=== PATIENT | female | born 1970 | race Caucasian/White ===

== ENCOUNTER → 2018-02-11 11:21 | Outpatient (CLI) | payer OTHER, SELFPAY | PROVIDERS: Family Provider Family Medicine; PCP Family Medicine; Visit Provider Physician Assistant | DX: L02.213 Cutaneous abscess of chest wall (principal) | CPT/HCPCS: 87070; 87077; 87147; 87186; 87205 ==

== ENCOUNTER 2018-02-13 06:35 | Emergency (ER) | payer OTHER, SELFPAY ==
[2018-02-13 06:44] VITALS: BP 133/82; PULSE 67; RESP 16; TEMP 36.5; O2SAT 100
--- NOTE | 2018-02-13 08:04 | DI.US.S_ITS ---
PROCEDURE: US CHEST COMPARISON: None. INDICATIONS: RED PAINFUL LUMP LEFT UPPER ANTERIOR ABDOMINAL WALL FINDINGS: No discrete focal fluid collection is seen sonographically to suggest abscess. IMPRESSION: No sonographic evidence of abscess Dictated by: Miky Coulter M.D. on 02/13/2018 at 10:06 Approved by: Miky Coulter M.D. on 02/13/2018 at 10:06
--- NOTE | 2018-02-13 08:07 | ED.SKABFB ---
HPI - Skin/Abscess/Foreign Bdy General Chief complaint: Skin/Abscess/Foreign Body Stated complaint: abscess on right side of abdomen Time Seen by Provider: 02/13/18 07:17 Source: patient Mode of arrival: ambulatory Limitations: no limitations History of Present Illness HPI narrative: This is a 48-year-old female who comes to the emergency department with complaint of increasing redness, pain and swelling over the area of an abscess that was I indeed on Monday. Today is Monday. Patient states she was started on antibiotics. She had a large amount of purulent drainage yesterday when a friend pushed on the area. She has not had any fevers, she has not had any nausea or vomiting she states the site is fairly uncomfortable. She has been taking Advil for it with some improvement. She has been having some mild diarrhea after starting antibiotics. Antibiotics are Bactrim twice daily. Patient states she has been taking them. She has not had prior issues with skin infections. She denies any other past medical history. She states she has had some minor surgeries but no major surgeries, she does not smoke tobacco. She was initially seen at the walk-in clinic, she states they did do a culture. The she was supposed to return today to have her packing removed but came to the ER as the redness seemed to be spreading. Related Data Previous Rx's Medication Instructions Recorded fluconazole 150 mg tablet 150 mg PO ONCE #1 tab 02/11/18 sulfamethoxazole 800 1 tab PO BID PRN 10 Days #20 tab 02/11/18 mg-trimethoprim 160 mg tablet clindamycin HCl 300 mg PO QID #40 cap 02/13/18 Allergies Allergy/AdvReac Type Severity Reaction Status Date / Time No Known Drug Allergies Allergy Verified 02/13/18 06:57 Review of Systems Review of Systems All systems reviewed & are unremarkable except as noted in HPI and below Constitutional Denies chills and Denies fever(s) Gastrointestinal Gastrointestinal: Reports abdominal pain, Reports diarrhea (mild after abx), Denies nausea and Denies vomiting Genitourinary Reports system reviewed and no additional complaints, except as docu Integumentary/Breasts Reports as per HPI, Reports erythema (spreading) and Reports other (abscess worsening) PFSH Social History Smoking Status: Never smoker Exam Narrative Exam Narrative: GENERAL: Alert and oriented x three, well-nourished, well-appearing female in mild distress HEENT: Head normocephalic, atraumatic, EOMI, pupils reactive, face symmetric, moist mucous membranes NECK: Supple, full range of motion CARDIOVASCULAR: Regular rate and rhythm without murmurs, rubs or gallops. RESPIRATORY: Breath sounds equal bilaterally, no wheezes rales or rhonchi. ABDOMEN: Soft, patient has an area of induration and that is about 7 cm x 5 cm. There is erythema extending beyond by 2 or 3 cm on the lateral side. Patient has a line drawn and does show that the erythema is extending about 4 cm beyond the original site. Patient has a 1 cm opening with packing, packing was removed there was about 6 in of packing. There is very scant purulent discharge. There is a slightly foul odor. Area is warm to touch. Patient is tender over that area but does not have any other abdominal tenderness on exam Normoactive bowel sounds all 4 quadrants. No guarding or rebound, rigidity, no mass : No CVA tenderness EXTREMITIES: Normal range of motion, no clubbing or edema. Neurovascularly intact NEUROLOGICAL: Cranial nerves II through XII grossly intact. Moving all extremities SKIN: Warm, dry, no petechiae, no rashes or lesions. Initial Vital Signs Initial Vital Signs: Vital Signs Temperature 97.7 F 02/13/18 06:44 Pulse Rate 67 02/13/18 06:44 Respiratory Rate 16 02/13/18 06:44 Blood Pressure 133/82 02/13/18 06:44 Pulse Oximetry 100 02/13/18 06:44 Course Orders Ordered: Discontinued Medications Clindamycin Phosphate (Cleocin) 600 mg in 50 mls @ 50 mls/hr IV NOW ONE Stop: 02/13/18 09:05 Last Infusion: 02/13/18 10:01 Dose: 0 mls/hr Admin: 02/13/18 08:30 Dose: 50 mls/hr Ketorolac Tromethamine (Toradol) 30 mg IV NOW ONE Stop: 02/13/18 08:05 Last Admin: 02/13/18 08:31 Dose: 30 mg Vital Signs - 8 hr 02/13/18 09:34 02/13/18 10:15 Pulse Rate 60 65 Respiratory Rate 16 15 Blood Pressure 114/82 Blood Pressure [Right Arm] 114/82 Pulse Oximetry 100 100 MDM - Skin/Abscess/Foreign Bdy Lab Data Attestation: I reviewed the patient's lab results. Result diagrams: 02/13/18 08:15 02/13/18 08:15 Lab Results 02/13/18 02/13/18 02/13/18 Range/Units 08:15 08:15 08:15 WBC 8.6 (4.5-11.0) X10^3/uL RBC 4.06 (4.0-5.2) X10^6/uL Hgb 12.1 (12.0-16.0) g/dL Hct 36.3 (36-46) % MCV 89.3 (80-100) fL MCH 29.9 (26-34) PG MCHC 33.5 (30-36) % RDW 13.8 (11.6-14.8) % Plt Count 338 (150-400) X10^3/uL Neut % (Auto) 59.9 (50-75) % Lymph % (Auto) 29.5 (25-40) % [place] % (Auto) 7.4 (3-14) % Eos % (Auto) 2.6 (2-4) % Baso % (Auto) 0.6 (0-2) % Neut # (Auto) 5100 (4300-3487) /uL Sodium 138 (137-145) mmol/L Potassium 4.4 (3.4-5.1) mmol/L Chloride 105 (98-107) mmol/L Carbon Dioxide 22 (22-32) mmol/L BUN 17 (7-17) mg/dL Creatinine 0.90 (0.52-1.04) mg/dL Estimated GFR > 60.0 (>60) mL/min BUN/Creatinine Ratio 18.9 (6-22) Glucose 89 (70-100) mg/dL Lactate 0.9 (0.7-2.1) mmol/L Calcium 9.5 (8.4-10.2) mg/dL Imaging Data chest/abd US: Radiologist's impression: [address] [address] Ultrasound Report Signed Patient: Rissa Olmos MR#: [id number] : 1970 Acct:[id number] Age/Sex: 48 / F Date of Service: 02/13/18 Loc: ED Accession Number: [id number] Procedure: US chest Ordering Provider: Julia Albert D.O. PROCEDURE: US CHEST COMPARISON: None. INDICATIONS: RED PAINFUL LUMP LEFT UPPER ANTERIOR ABDOMINAL WALL FINDINGS: No discrete focal fluid collection is seen sonographically to suggest abscess. IMPRESSION: No sonographic evidence of abscess Dictated by: Miky Coulter M.D. on 02/13/2018 at 10:06 Approved by: Miky Coulter M.D. on 02/13/2018 at 10:06 [facility] Narrative Medical decision making narrative: Culture ordered and was reviewed is positive for Staph aureus. Sensitivities are still pending. As patient has erythema seems to be spreading. Some basic labs ordered, dose of IV antibiotics was given packing was removed. Patient was given Toradol for pain control and re-evaluated. Patient's culture came back while in the department and sensitivity is clear for Bactrim but since patient has worsening will switch to clindamycin. A small amount of packing was placed in order to keep the area open. All questions were answered for patient and her . Discharge Plan Departure Patient Disposition: Home Clinical Impression: Abdominal wall abscess, Abdominal wall cellulitis Discharge Date/Time: 02/13/18 10:16 Interventions: ED Discharge Assessment Last Done: 02/13/18 10:15 Instructions: DI for Incision and Drainage of a Skin Abscess Activity Restrictions/Additional Instructions: Follow up in 24-48 hours for recheck with your physician/urgent care/ER for packing removal. Start new antibiotic prescription today. Stop your bactrim. He may continue to use Aleve/ibuprofen for pain and/or Tylenol. Wound Care: Keep wound(s) clean and dry. Wash daily with soap and water only. Do not use over the counter products (alcohol or peroxide)on the wounds unless instructed by a physician. If wound condition worsens (increased/expanding redness, developing fluid blisters, or worsening pain), either contact your doctor for an urgent re-assessment , or return to the Emergency Department. Return to the Emergency Department for any new or worsening symptoms. Return if fever greater than 100.4 Fahrenheit, increased swelling, increasing pain or worsening symptoms such as increased discharge or spreading redness. Use warm compresses 3 times daily for 20 minutes to the affected area. If there is packing in place do not pull it out, if it falls out do not try to replace it. Prescriptions: New clindamycin HCl 300 mg capsule 300 mg PO QID Qty: 40 RF: 0 No Action fluconazole 150 mg tablet 150 mg PO ONCE Qty: 1 RF: 1 sulfamethoxazole-trimethoprim [Bactrim DS] 800-160 mg tablet 1 tab PO BID PRN (Reason: cellulitis) 10 Days Qty: 20 RF: 0 Referrals: Gilberto Guallpa MD [Primary Care Provider] -
--- NOTE | 2018-02-13 08:10 | ED_ITS ---
HPI - Skin/Abscess/Foreign Bdy General Chief complaint: Skin/Abscess/Foreign Body Stated complaint: abscess on right side of abdomen Time Seen by Provider: 02/13/18 07:17 Source: patient Mode of arrival: ambulatory Limitations: no limitations History of Present Illness HPI narrative: This is a 48-year-old female who comes to the emergency department with complaint of increasing redness, pain and swelling over the area of an abscess that was I indeed on Monday. Today is Monday. Patient states she was started on antibiotics. She had a large amount of purulent drainage yesterday when a friend pushed on the area. She has not had any fevers , she has not had any nausea or vomiting she states the site is fairly uncomfortable. She has been taking Advil for it with some improvement. She has been having some mild diarrhea after starting antibiotics. Antibiotics are Bactrim twice daily. Patient states she has been taking them. She has not had prior issues with skin infections. She denies any other past medical history. She states she has had some minor surgeries but no major surgeries, she does not smoke tobacco. She was initially seen at the walk-in clinic, she states they did do a culture. The she was supposed to return today to have her packing removed but came to the ER as the redness seemed to be spreading. Related Data Previous Rx's Medication Instructions Recorded fluconazole 150 mg tablet 150 mg PO ONCE #1 tab 02/11/18 sulfamethoxazole 800 1 tab PO BID PRN 10 Days #20 tab 02/11/18 mg-trimethoprim 160 mg tablet clindamycin HCl 300 mg PO QID #40 cap 02/13/18 Allergies Allergy/AdvReac Type Severity Reaction Status Date / Time No Known Drug Allergies Allergy Verified 02/13/18 06:57 Review of Systems Review of Systems All systems reviewed & are unremarkable except as noted in HPI and below Constitutional Denies chills and Denies fever(s) Gastrointestinal Gastrointestinal: Reports abdominal pain, Reports diarrhea (mild after abx), Denies nausea and Denies vomiting Genitourinary Reports system reviewed and no additional complaints, except as docu Integumentary/Breasts Reports as per HPI, Reports erythema (spreading) and Reports other (abscess worsening) PFSH Social History Smoking Status: Never smoker Exam Narrative Exam Narrative: GENERAL: Alert and oriented x three, well-nourished, well- appearing female in mild distress HEENT: Head normocephalic, atraumatic, EOMI, pupils reactive, face symmetric, moist mucous membranes NECK: Supple, full range of motion CARDIOVASCULAR: Regular rate and rhythm without murmurs, rubs or gallops. RESPIRATORY: Breath sounds equal bilaterally, no wheezes rales or rhonchi. ABDOMEN: Soft, patient has an area of induration and that is about 7 cm x 5 cm. There is erythema extending beyond by 2 or 3 cm on the lateral side. Patient has a line drawn and does show that the erythema is extending about 4 cm beyond the original site. Patient has a 1 cm opening with packing, packing was removed there was about 6 in of packing. There is very scant purulent discharge. There is a slightly foul odor. Area is warm to touch. Patient is tender over that area but does not have any other abdominal tenderness on exam Normoactive bowel sounds all 4 quadrants. No guarding or rebound, rigidity, no mass : No CVA tenderness EXTREMITIES: Normal range of motion, no clubbing or edema. Neurovascularly intact NEUROLOGICAL: Cranial nerves II through XII grossly intact. Moving all extremities SKIN: Warm, dry, no petechiae, no rashes or lesions. Initial Vital Signs Initial Vital Signs: Vital Signs Temperature 97.7 F 02/13/18 06:44 Pulse Rate 67 02/13/18 06:44 Respiratory Rate 16 02/13/18 06:44 Blood Pressure 133/82 02/13/18 06:44 Pulse Oximetry 100 02/13/18 06:44 Course Orders Ordered: Discontinued Medications Clindamycin Phosphate (Cleocin) 600 mg in 50 mls @ 50 mls/hr IV NOW ONE Stop: 02/13/18 09:05 Last Infusion: 02/13/18 10:01 Dose: 0 mls/hr Admin: 02/13/18 08:30 Dose: 50 mls/hr Ketorolac Tromethamine (Toradol) 30 mg IV NOW ONE Stop: 02/13/18 08:05 Last Admin: 02/13/18 08:31 Dose: 30 mg Vital Signs - 8 hr 02/13/18 09:34 02/13/18 10:15 Pulse Rate 60 65 Respiratory Rate 16 15 Blood Pressure 114/82 Blood Pressure [Right Arm] 114/82 Pulse Oximetry 100 100 MDM - Skin/Abscess/Foreign Bdy Lab Data Attestation: I reviewed the patient's lab results. Result diagrams: 02/13/18 08:15 02/13/18 08:15 Lab Results 02/13/18 02/13/18 02/13/18 Range/Units 08:15 08:15 08:15 WBC 8.6 (4.5-11.0) X10^3/uL RBC 4.06 (4.0-5.2) X10^6/uL Hgb 12.1 (12.0-16.0) g/dL Hct 36.3 (36-46) % MCV 89.3 (80-100) fL MCH 29.9 (26-34) PG MCHC 33.5 (30-36) % RDW 13.8 (11.6-14.8) % Plt Count 338 (150-400) X10^3/uL Neut % (Auto) 59.9 (50-75) % Lymph % (Auto) 29.5 (25-40) % [place] % (Auto) 7.4 (3-14) % Eos % (Auto) 2.6 (2-4) % Baso % (Auto) 0.6 (0-2) % Neut # (Auto) 5100 (2991-2362) /uL Sodium 138 (137-145) mmol/L Potassium 4.4 (3.4-5.1) mmol/L Chloride 105 (98-107) mmol/L Carbon Dioxide 22 (22-32) mmol/L BUN 17 (7-17) mg/dL Creatinine 0.90 (0.52-1.04) mg/dL Estimated GFR > 60.0 (>60) mL/min BUN/Creatinine Ratio 18.9 (6-22) Glucose 89 (70-100) mg/dL Lactate 0.9 (0.7-2.1) mmol/L Calcium 9.5 (8.4-10.2) mg/dL Imaging Data chest/abd US: Radiologist's impression: [address] [address] Ultrasound Report Signed Patient: Rissa Olmos MR#: [id number] : 1970 Acct:[id number] Age/Sex: 48 / F Date of Service: 02/13/18 Loc: ED Accession Number: [id number] Procedure: US chest Ordering Provider: Julia Albert D.O. PROCEDURE: US CHEST COMPARISON: None. INDICATIONS: RED PAINFUL LUMP LEFT UPPER ANTERIOR ABDOMINAL WALL FINDINGS: No discrete focal fluid collection is seen sonographically to suggest abscess. IMPRESSION: No sonographic evidence of abscess Dictated by: Miky Coulter M.D. on 02/13/2018 at 10:06 Approved by: Miky Coulter M.D. on 02/13/2018 at 10:06 [facility] Narrative Medical decision making narrative: Culture ordered and was reviewed is positive for Staph aureus. Sensitivities are still pending. As patient has erythema seems to be spreading. Some basic labs ordered, dose of IV antibiotics was given packing was removed. Patient was given Toradol for pain control and re- evaluated. Patient's culture came back while in the department and sensitivity is clear for Bactrim but since patient has worsening will switch to clindamycin. A small amount of packing was placed in order to keep the area open. All questions were answered for patient and her . Discharge Plan Departure Patient Disposition: Home Clinical Impression: Abdominal wall abscess, Abdominal wall cellulitis Discharge Date/Time: 02/13/18 10:16 Interventions: ED Discharge Assessment Last Done: 02/13/18 10:15 Instructions: DI for Incision and Drainage of a Skin Abscess Activity Restrictions/Additional Instructions: Follow up in 24-48 hours for recheck with your physician/urgent care/ER for packing removal. Start new antibiotic prescription today. Stop your bactrim. He may continue to use Aleve/ibuprofen for pain and/or Tylenol. Wound Care: Keep wound(s) clean and dry. Wash daily with soap and water only. Do not use over the counter products (alcohol or peroxide)on the wounds unless instructed by a physician. If wound condition worsens (increased/expanding redness, developing fluid blisters, or worsening pain), either contact your doctor for an urgent re- assessment , or return to the Emergency Department. Return to the Emergency Department for any new or worsening symptoms. Return if fever greater than 100.4 Fahrenheit, increased swelling, increasing pain or worsening symptoms such as increased discharge or spreading redness. Use warm compresses 3 times daily for 20 minutes to the affected area. If there is packing in place do not pull it out, if it falls out do not try to replace it. Prescriptions: New clindamycin HCl 300 mg capsule 300 mg PO QID Qty: 40 RF: 0 No Action fluconazole 150 mg tablet 150 mg PO ONCE Qty: 1 RF: 1 sulfamethoxazole-trimethoprim [Bactrim DS] 800-160 mg tablet 1 tab PO BID PRN (Reason: cellulitis) 10 Days Qty: 20 RF: 0 Referrals: Gilberto Guallpa MD [Primary Care Provider] -
[2018-02-13 08:25] LABS: Add Manual Diff / Slide Review NO; Basophils Percent Auto 0.6 % (0-2); Eosinophils Percent Auto 2.6 % (2-4); Hematocrit 36.3 % (36-46); Hemoglobin 12.1 g/dL (12.0-16.0); Lymphocytes Percent Auto 29.5 % (25-40); Mean Corpuscular HGB Conc 33.5 % (30-36); Mean Corpuscular Hemoglobin 29.9 PG (26-34); Mean Corpuscular Volume 89.3 fL (80-100); Monocytes Percent Auto 7.4 % (3-14); Neutrophils Absolute Auto 5100 /uL (1500-7000); Neutrophils Percent Auto 59.9 % (50-75); Platelet Count 338 X10^3/uL (150-400); Red Blood Cell Count 4.06 X10^6/uL (4.0-5.2); Red Cell Distribution Width 13.8 % (11.6-14.8); White Blood Cell Count 8.6 X10^3/uL (4.5-11.0)
[2018-02-13] MEDS: CLINDAMYCIN 600 MG/50 ML PIGGYBACK 50 MG IV (08:30)
[2018-02-13] MEDS: KETOROLAC 60 MG/2 ML VIAL 30 MG IV (08:31)
[2018-02-13 08:36] LABS: BUN Creatinine Ratio 18.9 (6-22); Blood Urea Nitrogen 17 mg/dL (7-17); Calcium 9.5 mg/dL (8.4-10.2); Carbon Dioxide 22 mmol/L (22-32); Chloride 105 mmol/L (98-107); Estimated Glomerular Filt Rate > 60.0 mL/min (>60); Glucose 89 mg/dL (70-100); HEMOLYSIS 18 (0-50); Lactate (Lactic Acid) 0.9 mmol/L (0.7-2.1); Potassium 4.4 mmol/L (3.4-5.1); Sodium 138 mmol/L (137-145)
--- NOTE | 2018-02-13 09:04 | PC.NURSE ---
mrsa, isolation cart at [address]
[2018-02-13 09:34] VITALS: BP 114/82; PULSE 60; RESP 16; O2SAT 100
[2018-02-13 10:15] VITALS: BP 114/82; PULSE 65; RESP 15; O2SAT 100
== END 2018-02-13 10:16 | disposition home or self-care (01) ==
PROVIDERS: Emergency Provider Emergency Medicine; Family Provider Family Medicine; PCP Family Medicine
DX: K65.1 Peritoneal abscess (principal); L02.211 Cutaneous abscess of abdominal wall; L03.311 Cellulitis of abdominal wall
CPT/HCPCS: 36591; 76604; 80048; 83605; 85025; 96365; 96366; 96375; 99283; 99284; J1885